=== PATIENT | male | born 1940 | race African-American/Black ===

== ENCOUNTER → 2016-07-03 | Outpatient (CLI) | payer MEDICARE | LOC: US 13:00 | DX: I12.9 Hypertensive chronic kidney disease with stage 1 through stage 4 chronic kidney disease, or unspecified chronic kidney disease (principal); N18.3 Chronic kidney disease, stage 3 (moderate) ==

== ENCOUNTER 2020-07-01 14:11 | Emergency (ER) | payer MEDICARE ==
[~2020-07-01 14:11] MED LIST: HYDROCODON-ACE1 EAC4 PO
[2020-07-01 14:48] LABS: HEMOGLOBIN 12.3 gm/dl (14.0-17.5); RED BLOOD COUNT 3.96 M/UL (4.20-5.50); WHITE BLOOD COUNT 9.7 K/UL (4.5-11.0)
[2020-07-01 15:13] LABS: BUN/CREATININE RATIO 11 (0-10)
== END 2020-07-01 18:30 | disposition home or self-care (01) ==
LOC: ER1 14:11
PROVIDERS: Emergency Medicine
DX: R55 Syncope and collapse (principal); R42 Dizziness and giddiness; I11.9 Hypertensive heart disease without heart failure; F17.220 Nicotine dependence, chewing tobacco, uncomplicated; Z85.46 Personal history of malignant neoplasm of prostate
CPT/HCPCS: 70450; 71045; 80053; 81001; 82550; 82553; 83874; 83880; 84484; 85025; 93005; 99285

== ENCOUNTER 2020-07-21 18:49 | Inpatient (IN) | payer MEDICARE ==
[~2020-07-21] VITALS: Ht 180.3 cm; Wt 68.3 kg
[2020-07-21 19:41] LABS: HEMOGLOBIN 11.9 gm/dl (14.0-17.5); RED BLOOD COUNT 3.81 M/UL (4.20-5.50); WHITE BLOOD COUNT 9.9 K/UL (4.5-11.0)
[2020-07-21 20:05] LABS: BUN/CREATININE RATIO 20 (0-10)
== END 2020-07-22 18:45 | disposition home or self-care (01) | DRG 640 ==
LOC: ER1 18:49 → CDU 20:43 → PROG CARE 20:43
PROVIDERS: Physician Assistant; ADMIT Internal Medicine
DX: E86.0 Dehydration (principal); E43 Unspecified severe protein-calorie malnutrition; G93.40 Encephalopathy, unspecified; N17.9 Acute kidney failure, unspecified; R55 Syncope and collapse; R56.9 Unspecified convulsions; I95.9 Hypotension, unspecified; Z20.822 Contact with and (suspected) exposure to COVID-19; B88.8 Other specified infestations; Z68.20 Body mass index [BMI] 20.0-20.9, adult; Z72.0 Tobacco use; Z85.038 Personal history of other malignant neoplasm of large intestine
CPT/HCPCS: ECHO; 36415; 70450; 70551; 71045; 80048; 80053; 80061; 80307; 82140; 82550; 82553; 82607; 82746; 83036; 83540; 83550; 83874; 83880; 84439; 84443; 84484; 85025; 85045; 85610; 85730; 93005; 93306; 97116; 97161; 97166; 97530; 99285; J1650; J7030; U0002

== ENCOUNTER → 2021-04-06 | Outpatient (CLI) | payer MEDICARE | LOC: NM 08:30 | DX: C61 Malignant neoplasm of prostate (principal) | CPT/HCPCS: 78306; A9503 ==